=== PATIENT | female | born 1975 | race Caucasian/White ===

== ENCOUNTER → 2017-10-28 | Outpatient (CLI) | payer OTHER | LOC: COL.RAD 13:16 | DX: N91.2 Amenorrhea, unspecified (principal) ==

== ENCOUNTER → 2021-04-19 | Outpatient (CLI) | payer OTHER | LOC: MC.RAD 14:13 | DX: Z12.31 Encounter for screening mammogram for malignant neoplasm of breast (principal) ==

== ENCOUNTER → 2023-04-24 | Outpatient (CLI) | payer OTHER | LOC: CANSCHCLI → MC.RAD 15:01 | DX: Z12.31 Encounter for screening mammogram for malignant neoplasm of breast (principal) ==

== ENCOUNTER → 2023-08-01 | Outpatient (CLI) | payer OTHER ==
[~2023-08-01] MED LIST: NS IV SCH; SINCALIDE IV SCH
== END ==
LOC: COL.RAD 09:22
DX: R10.11 Right upper quadrant pain (principal)
CPT/HCPCS: A9537-JZ; J2805